=== PATIENT | female | born 1985 | race Hispanic/Latino ===

== ENCOUNTER 2021-04-30 16:52 | Emergency (ER) | payer OTHER ==
[~2021-04-30] VITALS: Ht 162.6 cm; Wt 113.4 kg
[2021-04-30 17:05] VITALS: BP 129/84
[2021-04-30] MEDS ORDERED: DSSL PO (17:38)
== END 2021-04-30 17:45 | disposition home or self-care (01) ==
LOC: EDH 16:52
DX: H61.22 Impacted cerumen, left ear (principal); Z79.899 Other long term (current) drug therapy
CPT/HCPCS: 99281; 99282